=== PATIENT | female | born 1990 | race African-American/Black ===

== ENCOUNTER 2019-04-06 01:58 | Emergency (ER) | payer SELFPAY ==
[~2019-04-06] VITALS: Ht 162.6 cm; Wt 99.8 kg
[2019-04-06 02:05] VITALS: BP 117/74
--- NOTE | 2019-04-06 02:05 | NUR ---
PT AMBULATED WITH STEADY GAIT TO BED #6
--- NOTE | 2019-04-06 02:05 | NUR ---
29 Y/O FEMALE C/O OF GENERALIZED BODY ACHES 12/13, STARTED 6 HOURS AGO. PT. STATED THAT SHE TOOK PERCOCET YESTERDAY WITH LITTLE RELIEF. NO SOB/CHEST PAIN; DENIES N/V/D. PT. ALSO STATES, " I HAVE A LITTLE BLURRED VISION TO MY RIGHT EYE. I RAN OUT OF MY COPAXONE A FEW DAYS AGO". A/OX4; PERRLA +2; FOLLOWS COMMANDS; [employer]. BREATHING UNLABORED AND SYMMETRICAL. ERMD MADE AWARE OF STATUS. SIDE RAILSX1. PLACED ON MONITOR. VSS. PMH: MULTIPLE SCLEROSIS SURGICAL HX: BRAIN SURGERIES (2013 +2014) RX: PERCOCET; CAPOXONE; PREDNISONE
--- NOTE | 2019-04-06 02:49 | NUR ---
Dr. Malik examining patient.
[2019-04-06] MEDS ORDERED: KETOROLAC 60 MG/2 ML VIAL IM ONE (03:00)
[2019-04-06] MEDS ORDERED: predniSONE 20 MG TAB PO ONE (03:00)
[2019-04-06 03:58] VITALS: BP 117/74
== END 2019-04-06 03:58 | disposition home or self-care (01) ==
LOC: MED 01:58
DX: G35 Multiple sclerosis (principal); Z88.0 Allergy status to penicillin
CPT/HCPCS: 87804; 96372; 99283; J1885; J7512